=== PATIENT | male | born 1955 | race Caucasian/White ===

== ENCOUNTER 2024-04-24 19:27 | Emergency (ER) | payer MEDICARE, OTHER, SELFPAY ==
[2024-04-24 19:32] VITALS: BP 131/81; PULSE 94; TEMP 36.6; O2SAT 95; BMI 25.3
--- NOTE | 2024-04-24 19:41 | XR_ITS ---
The [address] [address] Patient Name: SHRUTI MARTINEZ MRN: [id number] date: 1955 Sex: M Assigned Patient Location: ER Current Patient Location: Accession/Order Number: [id number] Exam Date: 04/24/2024 19:52 Report Date: 04/24/2024 22:15 At the request of: JENNIFER MARKER Procedure: XR wrist LT min 3V EXAM: XR wrist LT min 3V HISTORY: fall, left wrist pain COMPARISON: None. TECHNIQUE: 3 views of the left wrist FINDINGS: Acute complete fracture of the distal diaphysis left ulna is seen with a lumbar angulation of distal fracture fragment. Joint alignment is normal. Degenerative changes are seen about the radiocarpal joint with joint space narrowing and subchondral sclerosis. XR/XR wrist LT min 3V IMPRESSION: Acute complete angulated fracture of the distal ulna. Electronically authenticated by: RE MARIO Date: 04/24/2024 22:15
--- NOTE | 2024-04-24 19:42 | ED.UPPEXIN1 ---
HPI HPI - Extremity Injury (Upper) General Chief Complaint: Extremity Injury, Upper Stated Complaint: Upper Extremity Injury Time Seen by Provider: 04/24/24 19:34 Source: patient Mode of arrival: walk-in History of Present Illness HPI narrative: This 68-year-old male was brought to emergency department by his daughter for evaluation of a left wrist injury. The patient states he was on his porch and his right knee gave out causing him to fall. He fell backwards and caught himself with his left hand. He has skin tears and abrasions to the medial aspect of the left distal forearm and pain at the left distal radius and ulna. 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 The patient is on Eliquis for history of A-fib. He denies that he became dizzy prior to falling. He denies any chest pain or shortness of breath. He does not know the date of his last tetanus shot. Related Data Home Medications ?Medication ?Instructions ?Recorded ?Confirmed oxycodone 10 mg tablet 15 mg PO Q4H PRN pain 04/24/24 04/24/24 Allergies Allergy/AdvReac Type Severity Reaction Status Date / Time bee venom protein (honey bee) Allergy Severe Anaphylaxis Verified 04/24/24 19:39 Penicillins Allergy Severe Swelling Verified 04/24/24 19:39 of Lip/Tongue/Throat Sulfa (Sulfonamide Allergy Severe Blister Verified 04/24/24 19:39 Antibiotics) Opioid HPI Opioid Management Most Recent Pain and Opioid Data: Last Pain Scale 10 04/24/24 19:48 Last MAR Pain Assessment 04/24/24 19:48 Review of Systems ROS Status of ROS 10 or more systems reviewed and unremarkable except as noted in history and below [facility] Medical History (Updated 04/24/24 @ 20:27 by Veronique Sharpe MD) Afib ?I48.91 - Unspecified atrial fibrillation (ICD-10) Exam Narrative Exam Narrative: Vital signs and Nursing Notes reviewed: Patient is afebrile with a normal pulse, normal blood pressure, he is not hypoxic with pulse ox of 95% on room air General: Awake, alert, oriented, uncomfortable appearing adult male, GCS 15, no respiratory distress HEENT: Normocephalic atraumatic, mucous membranes are moist and pink, eyes are clear, normal conjunctiva, vision is grossly intact Neck: Supple, no meningeal signs, no anterior or posterior cervical lymphadenopathy Chest: Lungs are clear to auscultation with good air entry, there is no wheezing rhonchi or rales appreciated no accessory muscle use, patient is speaking in complete sentences-no chest wall tenderness to palpation CVS: Regular rate and rhythm S1-S2, no murmurs rubs or gallops, pulses are brisk and equal bilaterally ABD: Soft, nondistended, nontender, no rebound guarding or rigidity, bowel sounds are normal, no pulsatile masses appreciated Extremities: There is tenderness and swelling to the medial aspect of the left distal forearm. The patient's anatomy is altered due to his history of feliciano and removal of his third and fourth fingers. There are superficial skin tears in this area as well. Pulse is brisk. Fingers are warm and sensate. Skin: History of severe feliciano both second and third-degree with skin changes related to this as well as skin tears and superficial lacerations at the left medial distal forearm/wrist area Neuro: No focal deficits Constitutional Vital Signs, click to edit/add: Last Vital Signs Temp 97.9 F 04/24/24 19:32 Pulse 94 H 04/24/24 19:32 Resp 18 04/24/24 19:32 BP 131/81 04/24/24 19:32 Pulse Ox 95 04/24/24 19:32 O2 Del Method Room Air 04/24/24 19:32 Course Vital Signs Vital signs: Vital Signs Temperature 97.9 F 04/24/24 19:32 Pulse Rate 94 H 04/24/24 19:32 Respiratory Rate 18 04/24/24 19:32 Blood Pressure 131/81 04/24/24 19:32 Pulse Oximetry 95 04/24/24 19:32 Oxygen Delivery Method Room Air 04/24/24 19:32 Temperature 97.9 F 04/24/24 19:32 Pulse Rate 94 H 04/24/24 19:32 Respiratory Rate 18 04/24/24 19:32 Blood Pressure 131/81 04/24/24 19:32 Pulse Oximetry 95 04/24/24 19:32 Oxygen Delivery Method Room Air 04/24/24 19:32 MDM - Extremity Injury (Upper) MDM Narrative Medical decision making narrative: This 68-year-old male with a history of severe feliciano who is missing several fingers on both hands and also has severe osteoarthritis with knee and hip replacement surgeries and is prone to falls is brought to the emergency department by his daughter after he fell on their patio. He states his knee gave out on him causing him to fall. He braced his fall with his left hand. He has superficial abrasions and skin tears to the medial aspect of his left distal forearm and tenderness at the left distal ulna area. He did not hit his head. There is no loss of consciousness. He has chronic neck and back pain but this is unchanged. He was ambulatory after the fall. X-ray shows a minimally displaced left distal radius fracture. The patient was medicated with a dose of [place] and Zofran. His skin tears were cleansed and treated with Dermabond and a volar splint was placed on the left upper extremity to immobilize the forearm. The patient sees Dr. Babcock at [facility] in [place] and will be referred to him for further evaluation and treatment of this fracture. He declined the need for any pain medication stating that he is on pain medication through his family physician and was instructed to not take any additional pain medications from other physicians. He has oxycodone 10 mg at home. Tetanus was updated prior to discharge. Discharge Plan Discharge Stand Alone Forms: Portal Instructions Chief Complaint: Extremity Injury, Upper Clinical Impression: Fracture of left ulna, shaft, Skin tear, Fall from standing Patient Disposition: Home, Self-Care Time of Disposition Decision: 20:25 Condition: Good Prescriptions / Home Meds: No Action oxycodone 10 mg tablet 15 mg PO Q4H PRN (Reason: pain) Print Language: Turkish Instructions: Arm Fracture in Adults (ED), Splint Care (ED), Fall Prevention (ED) Referrals: TUTU CRAIG [Primary Care Provider] - 1 week Tutu Babcock MD [Physician] - 1 week Procedures ED Procedure Instructions Procedures Procedures: Procedure Note; left forearm skin tear/abrasion treatment; the skin tear and abrasions were cleaned with sterile water and Hibiclens and dried. Dermabond was applied topically. Fx care without manipulation: a volar splint was placed over heavy packing and an diana wrap was applied. Pt tolerated procedure well.
--- NOTE | 2024-04-24 19:45 | PC.NURSE ---
left wrist swelling with abrasion to area, good radial pulse and wrist placed on pillow with ice for comfort
[2024-04-24] MEDS: HYDROCODONE/ACET 5-325 MG TABLET 1 TAB PO (19:48)
[2024-04-24] MEDS: ONDANSETRON 4 MG RAPDIS TABLET SL (19:48)
[2024-04-24] MEDS: ADACEL DIPH,PERTUSS(ACELL),TET VAC/PF 0.5 ML ADULT SYRINGE IM (19:50)
== END 2024-04-24 20:38 | disposition home or self-care (01) ==
PROVIDERS: Emergency Provider Emergency Medicine; PCP Internal Medicine
DX: S52.602A Unspecified fracture of lower end of left ulna, initial encounter for closed fracture (principal); S51.812A Laceration without foreign body of left forearm, initial encounter; W19.XXXA Unspecified fall, initial encounter; I48.91 Unspecified atrial fibrillation; Z79.01 Long term (current) use of anticoagulants; L02.512 Cutaneous abscess of left hand; Z96.659 Presence of unspecified artificial knee joint; Z96.649 Presence of unspecified artificial hip joint; Z23 Encounter for immunization
CPT/HCPCS: 12001; 29125; 73110; 90471; 90715; 99283; Q0162